=== PATIENT | female | born 1960 | race African-American/Black ===

== ENCOUNTER 2016-10-25 11:57 | Emergency (ER) | payer SELFPAY ==
[2016-10-25 12:03] VITALS: BP 153/75
--- NOTE | 2016-10-25 12:44 | UC ---
Lower Extremity/Ankle HPI - History of Current Complaint Chief Complaint: UCAbdominalPain Stated Complaint: KNEE PAIN ABD PAIN HEADACHE Hx Obtained From: Patient ?: No Onset/Duration: Gradual Onset - started 2-3 days ago with slight abd pain and diarrhea.also has diarrhea (brown), DAUGHTER HAS DIARRHEA WELL. SHE ALSO HAS l KNEE PAIN (CHRONIC) THAT HAS "been acting up" for 2 days Severity Initially: Moderate Severity Currently: Mild Aggravating Factor(s): Nothing Alleviating Factor(s): Rest Able to Bear Weight: Yes - Risk Factors DVT Risk Factors: Negative - Allergies/Home Medications Allergies/Adverse Reactions: Allergies Allergy/AdvReac Type Severity Reaction Status Date / Time No Known Allergies Allergy Verified 07/28/15 08:17 Home Medications: Home Medications NK [No Home Medications Reported] 10/25/16 [History Confirmed 10/25/16] PMH/Surg Hx/FS Hx/Imm Hx Previously Healthy: Yes - Surgical History Surgical History: Yes Surgery Procedure, Year, and Place: 2 c-sections - Family History Known Family History: Positive: None - Social History Occupation: Employed Part-time Lives: With Family Alcohol Use: Occasionally Substance Use Type: None Smoking Status (MU): Never Smoked Tobacco Review of Systems Constitutional: Negative ENT: Dental Pain Cardiovascular: Negative Gastrointestinal: Diarrhea - abdominal pain has resolved Genitourinary: Negative Motor: Negative Neurovascular: Negative Musculoskeletal: Other: - intermittant L knee pain when ambulating Neurological: Headache - had sloight headache yesterday Psychological: Negative All Other Systems Reviewed And Are Negative: Yes Physical Exam Triage Information Reviewed: Yes Appearance: Well-Appearing, No Pain Distress, Well-Nourished Vital Signs: Initial Vital Signs Temp 97.4 F 10/25/16 12:00 Pulse 60 10/25/16 12:00 Resp 16 10/25/16 12:00 BP 153/75 10/25/16 12:00 Pulse Ox 100 10/25/16 12:00 Vital Signs Reviewed: Yes Respiratory Exam: Normal Cardiovascular Exam: Normal Abdominal Exam: Normal Abdomen Description: Positive: Nontender, No Organomegaly, Soft Bowel Sounds: Positive: Present Musculoskeletal Exam: Normal Musculoskeletal: Positive: Strength Intact, ROM Intact, No Edema Neurological Exam: Normal Psychological Exam: Normal Skin Exam: Normal Lower Extremity Course/Dx - Differential Dx/Diagnosis Differential Diagnosis/HQI/PQRI: DVT, Sprain, Strain, Other - viral illness Provider Diagnoses: chronic knee pain, diarrhea Discharge - Discharge Plan Condition: Stable Disposition: HOME Patient Education Materials: Knee Pain (ED), Acute Diarrhea (ED) Forms: *Work Release Additional Instructions: clear liquid diet for 24 hours, then advance to bland foods, drink plenty of fluids rest knee and use tylenol (over the counter) for pain as directed report to ER if symptoms worsen at anytime follow-up with your primary care provider to recheck blood pressure
== END 2016-10-25 12:50 | disposition home or self-care (01) ==
LOC: UCEAST 11:57
DX: M25.562 Pain in left knee (principal); G89.29 Other chronic pain; R19.7 Diarrhea, unspecified
CPT/HCPCS: 81003; 99211; G0463

== ENCOUNTER 2017-07-15 10:31 | Emergency (ER) | payer OTHER ==
[2017-07-15 10:41] VITALS: BP 150/94
== END 2017-07-15 11:25 | disposition left against medical advice (07) ==
LOC: UCEAST 10:31
DX: M79.603 Pain in arm, unspecified (principal); Z53.21 Procedure and treatment not carried out due to patient leaving prior to being seen by health care provider

== ENCOUNTER 2017-07-21 14:12 | Emergency (ER) | payer OTHER ==
[2017-07-21 14:24] VITALS: BP 183/91
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
--- NOTE | 2017-07-21 15:09 | RAD ---
HISTORY: Right shoulder injury COMPARISONS: None VIEWS: 4, Frontal internal rotation, external rotation, outlet, and axillary views of the right shoulder FINDINGS: BONE DENSITY: Normal. BONES: There is no displaced fracture. JOINTS: There is mild glenohumeral osteoarthritis. ALIGNMENT: There is no dislocation. SOFT TISSUES: Unremarkable. OTHER FINDINGS: None. IMPRESSION: NO ACUTE OSSEOUS INJURY. IF SYMPTOMS PERSIST, RECOMMEND REPEAT IMAGING.
== END 2017-07-21 15:25 | disposition home or self-care (01) ==
LOC: UCEAST 14:12
DX: S40.011A Contusion of right shoulder, initial encounter (principal); Y04.2XXA Assault by strike against or bumped into by another person, initial encounter; Y93.9 Activity, unspecified; Y92.9 Unspecified place or not applicable; Z88.0 Allergy status to penicillin
CPT/HCPCS: 99213; G0463

== ENCOUNTER 2017-07-28 13:06 | Emergency (ER) | payer OTHER ==
--- NOTE | 2017-07-28 16:49 | ED ---
Upper Extremity Pain - HPI Summary HPI Summary: Rt shoulder pain x .... Was seen at and had f/u at ortho - posisble rotator cuff tear. Has been taking ibuprofen 600mg q 6 hours and oxycodone 5 w/o much relief. SHe was advised to wear a sling but hsan't been (it does help). Has pain in shoulder and going down her arm. Has pain and weakness in shoulder w/ abduction - denies numbness but has tingling at times. SHe has been continuing to work despite her injury - this makes pain worse. - History of Current Complaint Hx Obtained From: Patient <Julieta Ryan - Last Filed: 07/28/17 16:44> <Harpal Trevino - Last Filed: 07/31/17 20:30> - History of Current Complaint Chief Complaint: EDShoulderClavicleInj Stated Complaint: RT SHOULDER PAIN Time Seen by Provider: 07/28/17 16:25 - Allergies/Home Medications Allergies/Adverse Reactions: Allergies Allergy/AdvReac Type Severity Reaction Status Date / Time Penicillins Allergy Hives Verified 07/28/17 13:37 PMH/Surg Hx/FS Hx/Imm Hx Endocrine/Hematology History: Denies: Hx Diabetes, Hx Thyroid Disease Cardiovascular History: Denies: Hx Hypertension Respiratory History: Denies: Hx Asthma, Hx Chronic Obstructive Pulmonary Disease (COPD) GI History: Denies: Hx Ulcer - Surgical History Surgery Procedure, Year, and Place: 2 c-sections Infectious Disease History: No Infectious Disease History: Denies: Hx Clostridium Difficile, Hx Hepatitis, Hx Human Immunodeficiency Virus (HIV), Hx of Known/Suspected MRSA, Hx Shingles, Hx Tuberculosis, Hx Known/ Suspected VRE, Hx Known/Suspected VRSA, History Other Infectious Disease, Traveled Outside the [place] in Last 30 Days - Family History Known Family History: Positive: None Negative: Cardiac Disease, Hypertension, Diabetes - Social History Alcohol Use: Occasionally Substance Use Type: Reports: None Smoking Status (MU): Never Smoked Tobacco <Julieta Ryan - Last Filed: 07/28/17 16:44> Review of Systems All Other Systems Reviewed And Are Negative: Yes <Harpal Trevino - Last Filed: 07/31/17 20:30> Physical Exam Vital Signs On Initial Exam: Initial Vitals Temp Pulse Resp BP Pulse Ox 98.3 F 72 14 172/107 100 07/28/17 13:37 07/28/17 13:37 07/28/17 13:37 07/28/17 13:37 07/28/17 13:37 <Julieta Ryan - Last Filed: 07/28/17 16:44> Vital Signs On Initial Exam: Initial Vitals Temp Pulse Resp BP Pulse Ox 36.8 C 72 14 172/107 100 07/28/17 13:37 07/28/17 13:37 07/28/17 13:37 07/28/17 13:37 07/28/17 13:37 <Harpal Trevino - Last Filed: 07/31/17 20:30> Diagnostics - Vital Signs Vital Signs Temp Pulse Resp BP Pulse Ox 07/28/17 13:37 98.3 F 72 14 172/107 100 <Julieta Ryan - Last Filed: 07/28/17 16:44> - Vital Signs Vital Signs Temp Pulse Resp BP Pulse Ox 07/28/17 16:49 37.3 C 85 14 176/96 100 07/28/17 13:37 36.8 C 72 14 172/107 100 <Harpal Trevino - Last Filed: 07/31/17 20:30> Course/Dx <Julieta Ryan - Filed: 07/28/17 16:44> <Harpal Trevino - Last Filed: 07/31/17 20:30> - Diagnoses Provider Diagnoses: Rotator cuff injury Discharge - Sign-Out/Discharge Documenting (check all that apply): Discharge/Admit/Transfer - Billing Disposition and Condition Condition: STABLE Disposition: HOME <Julieta Ryan - Last Filed: 07/28/17 16:44> - Billing Disposition and Condition Condition: STABLE Disposition: HOME <Harpal Trevino - Last Filed: 07/31/17 20:30> - Discharge Plan Condition: Stable Disposition: HOME Prescriptions: Gabapentin CAP(*) [Neurontin 300 CAP(*)] 300 mg PO TID #30 cap Patient Education Materials: Rotator Cuff Injury (ED) Forms: *Work Release Referrals: Matilde Clifton MD [Primary Care Provider] - Additional Instructions: You appear to have a rotator cuff injury. Keep taking your ibuprofen with food and you may take with prilosec to protect your stomach lining. If you develop abdominal pain, dark or bloody stool, stop taking. You may also continue to take your oxycodone as needed for pain. Additionally, gabapentin has been added to your regimen today - take as directed and follow-up with ortho for adjustments with this medications as needed. You should wear your sling most of the day to prevent worsening of pain and tingling sensations. Keep appointment with orthopedics as directed. *If you develop numbness, coolness of your arm or intractable pain, return to the ED
[2017-07-28 16:58] VITALS: BP 176/96
== END 2017-07-28 16:58 | disposition home or self-care (01) ==
LOC: ED 13:06
DX: M25.511 Pain in right shoulder (principal); Z88.0 Allergy status to penicillin
CPT/HCPCS: 99282